=== PATIENT | male | born 1970 | race Caucasian/White ===

== ENCOUNTER 2024-09-29 06:35 | Day surgery (SDC) | payer OTHER ==
[~2024-09-29] VITALS: Ht 182.9 cm; Wt 122.5 kg
[~2024-09-29 06:35] MED LIST: AVEL1TAB2 OR; COUM1TAB17 OR; JARD1TAB3 PO; LACT10SO8 PO; LOSA25TA13 PO; METO200T15 PO; MIRALEX PO; No Historical Meds; OMEP-173 PO; PRAV40TA2 PO; PRIL20CA OR; SENO8.6T5 OR; TRAM50TA2 OR; VITA100093 PO; anexsia PO
[2024-09-29] MEDS ORDERED: propofoL 200 MG/20 ML VIAL As Ordered ONE (06:56)
[2024-09-29] MEDS ORDERED: fentaNYL 100 MCG/2 ML INJECTION As Ordered ONE (06:57)
[2024-09-29 08:15] VITALS: BP 129/75; O2SAT 95
== END 2024-09-29 08:17 | disposition home or self-care (01) ==
LOC: M OPP 06:35
PROVIDERS: ATTEND Surgery
DX: Z12.11 Encounter for screening for malignant neoplasm of colon (principal); D12.5 Benign neoplasm of sigmoid colon; D12.0 Benign neoplasm of cecum; K64.0 First degree hemorrhoids; K25.9 Gastric ulcer, unspecified as acute or chronic, without hemorrhage or perforation; Z80.0 Family history of malignant neoplasm of digestive organs; G47.30 Sleep apnea, unspecified; Z79.84 Long term (current) use of oral hypoglycemic drugs; Z79.899 Other long term (current) drug therapy; F17.220 Nicotine dependence, chewing tobacco, uncomplicated
CPT/HCPCS: 43239; 45380; 88305; J3010